=== PATIENT | female | born 1995 | race Caucasian/White ===

== ENCOUNTER 2023-11-22 22:02 | Emergency (ER) | payer OTHER ==
[~2023-11-22] VITALS: Ht 170.2 cm; Wt 61.2 kg
[2023-11-22 23:33] VITALS: BP 109/69; TEMP 98.5; O2SAT 95
[2023-11-22] MEDS ORDERED: BENZ-13 PO (23:45)
[2023-11-22] MEDS ORDERED: AZIT250T PO (23:45)
== END 2023-11-23 00:01 | disposition home or self-care (01) ==
LOC: ER 22:26
DX: J40 Bronchitis, not specified as acute or chronic (principal); J02.9 Acute pharyngitis, unspecified; Z79.899 Other long term (current) drug therapy; Z20.822 Contact with and (suspected) exposure to COVID-19; Z88.1 Allergy status to other antibiotic agents
CPT/HCPCS: 71045-TC; 86403-TC; 87070-TC

== ENCOUNTER 2024-02-06 18:54 | Emergency (ER) | payer OTHER ==
[~2024-02-06] VITALS: Ht 170.2 cm; Wt 65.8 kg
[~2024-02-06 18:54] MED LIST: AZIT250T PO; BENZ-13 PO
[2024-02-06 21:22] LABS: BASOPHILS # (AUTO) 0.1 K/uL (0.0-0.2); BASOPHILS % (AUTO) 0.6 % (0.0-2.0); EOSINOPHILS # (AUTO) 0.2 K/uL (0.0-0.7); EOSINOPHILS % (AUTO) 1.8 % (0.0-6.0); HEMATOCRIT 38 % (33-45); HEMOGLOBIN 13.1 g/dL (11.5-14.8); LYMPHOCYTES # (AUTO) 1.9 K/uL (0.8-4.8); LYMPHOCYTES % (AUTO) 18.7 % (20.0-44.0); MEAN CORPUSCULAR HEMOGLOBIN 31 PG (26.0-33.0); MEAN CORPUSCULAR HGB CONC 34 g/dl (31.0-36.0); MEAN CORPUSCULAR VOLUME 92 fL (82-100); MONOCYTES # (AUTO) 0.8 K/uL (0.1-1.30); MONOCYTES % (AUTO) 7.4 % (2.0-12.0); NEUTROPHILS # (AUTO) 7.4 K/uL (1.8-8.9); NEUTROPHILS % (AUTO) 71.5 % (43.0-81.0); PLATELET COUNT (AUTO) 296 K/uL (150-450); RED BLOOD CELL COUNT(AUTO) 4.17 MIL/uL (4.0-5.2); RED CELL DISTRIBUTION WIDTH 12.9 % (11.5-15.0); WHITE BLOOD COUNT (AUTO) 10.3 K/uL (4.3-11.0)
[2024-02-06 21:31] LABS: CALCIUM, SERUM 8.9 mg/dL (8.5-10.1); CREATININE 0.8 mg/dL (0.6-1.3); POTASSIUM 4.1 mmol/L (3.5-5.1)
[2024-02-06] MEDS ORDERED: LORAZEPAM 1 MG TABLET ONE (22:12)
[2024-02-06] MEDS: LORAZEPAM 1 MG TABLET PO ONE (22:23)
[2024-02-06 23:55] VITALS: BP 106/67; TEMP 98; O2SAT 95
== END 2024-02-06 23:56 | disposition home or self-care (01) ==
LOC: ER 18:57
DX: F41.9 Anxiety disorder, unspecified (principal); R07.9 Chest pain, unspecified; R42 Dizziness and giddiness; Z88.0 Allergy status to penicillin; Z86.59 Personal history of other mental and behavioral disorders
CPT/HCPCS: 36415; 71045-TC; 80048-TC; 85025-TC

== ENCOUNTER 2024-02-18 21:56 | Emergency (ER) | payer OTHER ==
[~2024-02-18] VITALS: Ht 167.6 cm; Wt 61.2 kg
[2024-02-18] MEDS ORDERED: ONDANSETRON HCL/PF 4 MG/2 ML VIAL ONE (23:40)
[2024-02-19] MEDS: IV NS 0.9% 1,000 ML BAG IV ONE
[2024-02-19] MEDS: ONDANSETRON HCL/PF 4 MG/2 ML VIAL IVP ONE
[2024-02-19 00:49] LABS: APPEARANCE,URINE CLEAR (CLEAR); BILIRUBIN,URINE 1+ (NEGATIVE); BLOOD, URINE NEGATIVE Ery/uL (NEGATIVE); COLOR,URINE YELLOW (YELLOW); KETONES,URINE 3+ mg/dL (NEGATIVE); LEUKOCYTE ESTERASE ,URINE NEGATIVE (NEGATIVE); NITRITE, URINE NEGATIVE (NEGATIVE); PROTEIN,URINE NEGATIVE (NEGATIVE); UGLUCOSE NEGATIVE (NEGATIVE); UROBILINOGEN,URINE 0.2 EU/dL (0.2)
[2024-02-19 00:54] LABS: PREGNANCY TEST URINE QUAL NEGATIVE (NEGATIVE)
[2024-02-19] MEDS ORDERED: ONDA4TAB5 PO (01:04)
[2024-02-19 01:17] VITALS: BP 107/72; TEMP 98.6; O2SAT 97
== END 2024-02-19 01:17 | disposition home or self-care (01) ==
LOC: ER 22:09
DX: R11.2 Nausea with vomiting, unspecified (principal); R30.0 Dysuria; Z88.0 Allergy status to penicillin
CPT/HCPCS: 99283; 96374; 96361; 84703; 81003; J2405; J7030